=== PATIENT | female | born 1990 | race Two or more races ===

== ENCOUNTER 2021-08-25 14:58 | Emergency (ER) | payer OTHER ==
[2021-08-25 15:04] VITALS: TEMP 98.4
[2021-08-25] MEDS ORDERED: SODIUM CHLORIDE 0.9% 1,000 ML IV STA (15:39)
[2021-08-25] MEDS ORDERED: DEXAMETHASONE SOD PHOSPHATE 10 MG/ML 1 ML VIAL IVP STA (15:41)
--- NOTE | 2021-08-25 15:51 | ED ---
Chest Pain HPI - General Chief Complaint: Chest Pain Stated Complaint: Chest Pain Time Seen by Provider: 08/25/21 15:26 Source: patient, family, RN notes reviewed Mode of arrival: ambulatory Limitations: no limitations - History of Present Illness Initial Comments: This is a 31-year-old female who presents to the emergency department for chest pain. Patient states this started 3 days ago. It is localized to the center of her chest and is worse when breathing. She has also been coughing and dealing with an allergy flare up, but is unsure if these are related. Her eyes have been red, watery, and itchy. States that her symptoms have never been this severe. She did have a temperature of 103F yesterday. She has been taking Zyrtec, Benadryl, and using multiple eyedrops all with no relief. Describes the chest pain as being punched in the chest. She does note some intermittent shortness of breath as well. Denies any chills, sore throat, palpitations, abdominal pain, nausea, vomiting, diarrhea, back pain, or headaches. MD Complaint: chest pain Onset/Timin -: days(s) - Related Data Home Medications Medication Instructions Recorded Confirmed No Known Home Medications 08/25/21 08/25/21 Allergies Allergy/AdvReac Type Severity Reaction Status Date / Time No Known Allergies Allergy Verified 08/25/21 16:12 Review of Systems ROS Statement: Those systems with pertinent positive or pertinent negative responses have been documented in the HPI. ROS Other: All systems not noted in ROS Statement are negative. EKG Findings - EKG Comments: EKG Findings:: Normal sinus rhythm. Ventricular rate 72 bpm, OR interval 151 ms, QRS duration 95 ms, QTC 400 ms. Past Medical History Past Medical History: No Reported History History of Any Multi-Drug Resistant Organisms: None Reported Past Surgical History: Cholecystectomy Past Psychological History: No Psychological Hx Reported Smoking Status: Never smoker Past Alcohol Use History: None Reported Past Drug Use History: None Reported General Exam Limitations: no limitations General appearance: alert, in no apparent distress Head exam: Present: atraumatic, normocephalic, normal inspection Eye exam: Present: conjunctival injection (Bilateral), other (Bilateral epiphora) Respiratory exam: Present: normal lung sounds bilaterally. Absent: respiratory distress, wheezes, rales, rhonchi, stridor, chest wall tenderness Cardiovascular Exam: Present: regular rate, normal rhythm, normal heart sounds. Absent: systolic murmur, diastolic murmur, rubs, gallop, clicks Neurological exam: Present: alert, oriented X3, CN II-XII intact Psychiatric exam: Present: normal affect, normal mood Skin exam: Present: warm, dry, intact, normal color. Absent: rash Course Vital Signs 08/25/21 08/25/21 08/25/21 15:00 16:38 17:14 Temperature 98.4 F Pulse Rate 79 70 72 Respiratory 16 18 18 Rate Blood Pressure 116/84 121/74 111/62 O2 Sat by Pulse 96 97 98 Oximetry Chest Pain MDM - MDM This is a 31-year-old female who presents to the emergency department for chest pain. EKG revealed no arrhythmias or ST segment changes. Lab work obtained and was found to be nonactionable. Chest x-ray revealed no acute cardiopulmonary process. Patient given Decadron for possible allergic component given the associated eye itching and coughing. States that this may have improved her symptoms to a very minor extent. She was then given 2 mg of morphine, which she states helped her symptoms more, however the chest pain was still present. When asked about which symptom was most bothersome, she said it was her eyes. She was given Zaditor eyedrops, however these did not offer any relief. I discussed with the patient that he would be in her best interest to stay overnight for observation to trend her troponin levels in the event there is an ACS component to this. Patient declines to be admitted overnight, but states that she will stay for a repeat of the second troponin level. 325 mg aspirin administered. Second troponin level was negative. Upon reevaluation, the patient states that her symptoms had significantly improved at this point. Unclear if this was related to the ASA or Morphine and Decadron. Also states that her eyes were no longer painful and itchy, and feels like her face is less swollen, which suggests that the Decadron had taken affect. Patient requests discharge home. We again discussed that it would be advised to keep her overnight to track her troponin levels, at least 3 times in a row. However, patient declined despite my recommendations and accepts the risk of myocardial injury. Prescription for Bepotastine eyedrops sent to the pharmacy. Advised to use this twice daily for symptoms of allergies. She was given Toradol eye drops in the emergency department and sent home with a bottle. Advised that she can use this up to 4 times daily, however she should not use this longer than a week. If she finds these to be beneficial, she can discuss further use with her primary care provider. Return precautions reviewed in depth, the patient is instructed to return to the emergency department with any new, worsening, or concerning symptoms. Patient verbalized understanding. This case was discussed in detail with the attending ED physician. Presentation, findings, and treatment plan discussed in detail as well. - GIBSON Score Age > 65: (0) No 3 or more CAD Risk Factors: (0) No Known CAD with more than 50% Stenosis: (0) No Aspirin use within the Past 7 Days: (0) No Elevated Cardiac Markers: (0) No ST Deviation Greater than 0.5mm: (0) No Disposition Clinical Impression: Chest pain, Allergic conjunctivitis Disposition: HOME SELF-CARE Instructions (If sedation given, give patient instructions): Chest Pain (ED), Noncardiac Chest Pain (ED), Allergies (ED), Conjunctivitis (ED) Additional Instructions: Return to the emergency department with any new, worsening, or concerning symptoms. The ketorolac eyedrops were sent home with you and you can use them up to 4 times daily for no more than a week, if you wish to continue using these, consult your primary care provider. Use the Bepotastine eyedrops twice daily for treatment of allergies. Discuss the ongoing and severe allergy symptoms with your primary care provider for additional management options. Follow up with your primary care provider in 1-2 days. Is patient prescribed a controlled substance at d/c from ED?: No Referrals: None,Stated [Primary Care Provider] - 1-2 days
[2021-08-25 16:23] LABS: Basophils % (A) 0 %; Eosinophils # (A) 0.1 k/uL (0-0.7); Eosinophils % (A) 1 %; HCT 43.8 % (34.0-46.0); HGB 14.7 gm/dL (11.4-16.0); Lymphocytes # (A) 2.8 k/uL (1.0-4.8); Lymphocytes % (A) 31 %; MCH 27.8 pg (25.0-35.0); MCHC 33.6 g/dL (31.0-37.0); MCV 82.8 fL (80.0-100.0); Mean Platelet Volume 10.4; Monocytes # (A) 0.5 k/uL (0-1.0); Monocytes % (A) 6 %; Neutrophils # (A) 5.4 k/uL (1.3-7.7); Neutrophils % (A) 60 %; Platelet Count 246 k/uL (150-450); RBC 5.28 m/uL (3.80-5.40); RDW 13.8 % (11.5-15.5)
--- NOTE | 2021-08-25 16:26 | XR ---
EXAMINATION TYPE: XR chest 2V DATE OF EXAM: 08/25/2021 COMPARISON: NONE HISTORY: Chest pain TECHNIQUE: 2 views FINDINGS: Heart and mediastinum are normal. Lungs are clear. Diaphragm is normal. Bony thorax is inta ct there are chest leads. IMPRESSION: Normal chest.
[2021-08-25 16:38] VITALS: RESP 18
[2021-08-25 16:46] LABS: Appearance,Urine Cloudy (Clear); Bacteria,Urine Rare /hpf; Bilirubin,Urine Negative (Negative); Blood,Urine Small (Negative); Color,Urine Yellow; Glucose,Urine (UA) Negative (Negative); Ketones,Urine Negative (Negative); Leukocyte Esterase,Urine Moderate (Negative); Mucus,Urine Many /hpf; Nitrite,Urine Negative (Negative); Protein,Urine Trace (Negative); RBC,Urine 5 /hpf (0-5); Specific Gravity,Urine 1.031 (1.001-1.035); Squamous Epithelial Cell,Urine 6 /hpf (0-4); Urobilinogen,Urine <2.0 mg/dL (<2.0); WBC,Urine 3 /hpf (0-5)
[2021-08-25 16:49] LABS: ALT 29 U/L (4-34); AST 26 U/L (14-36); African American GFR (CKD) >90 (>60 ml/min/1.73 sqM); Albumin 3.8 g/dL (3.5-5.0); Alkaline Phosphatase 95 U/L (38-126); Amylase 57 U/L (30-110); Anion Gap 5 mmol/L; Blood Urea Nitrogen 12 mg/dL (7-17); Calcium 8.3 mg/dL (8.4-10.2); Carbon Dioxide 23 mmol/L (22-30); Chloride 110 mmol/L (98-107); Glucose 112 mg/dL (74-99); Lipase 59 U/L (23-300); Non-African American GFR(CKD) >90 (>60 ml/min/1.73 sqM); Potassium 3.5 mmol/L (3.5-5.1); Sodium 138 mmol/L (137-145); Total Bilirubin 0.7 mg/dL (0.2-1.3); Total Protein 7.1 g/dL (6.3-8.2)
[2021-08-25] MEDS ORDERED: KETOTIFEN 0.025% OPHTH DROPS 5 ML BTL BOTH EYES STA (17:02)
[2021-08-25] MEDS ORDERED: MORPHINE SULFATE 2 MG/ML SYRINGE IVP STA (17:04)
[2021-08-25] MEDS ORDERED: ASPIRIN 325 MG TAB PO STA (17:47)
[2021-08-25] MEDS ORDERED: KETOROLAC 0.5% OPHTH DROPS 5 ML BTL BOTH EYES SCH (18:15)
[2021-08-25 19:11] VITALS: BP 119/63; PULSE 74
[2021-08-25] MEDS ORDERED: KETOTIFEN 0.025% OPHTH DROPS 5 ML BTL BOTH EYES SCH (21:00)
== END 2021-08-25 19:28 | disposition home or self-care (01) ==
LOC: EC 14:58
DX: R07.89 Other chest pain (principal); H10.10 Acute atopic conjunctivitis, unspecified eye
CPT/HCPCS: 36415; 93005; 85379; 80053; 82150; 83690; 83735; 84484; 85025; 81001; 87502; 87635; 71046; 99285; 96374; 96375; 96361; J1100; J2270

== ENCOUNTER 2021-09-20 14:32 | Emergency (ER) | payer OTHER ==
[2021-09-20 15:21] VITALS: BP 112/81; PULSE 67; RESP 20; TEMP 97.8
--- NOTE | 2021-09-20 18:14 | ED ---
General Adult HPI - General Chief complaint: Upper Respiratory Infection Stated complaint: Cough,Eye issues Time Seen by Provider: 09/20/21 18:04 Source: patient Mode of arrival: ambulatory Limitations: no limitations - History of Present Illness Initial comments: Dictation was produced using [employer] dictation software. please excuse any grammatical, word or spelling errors. Chief Complaint: 31-year-old female presents to the emergency department for fever cough and sore throat History of Present Illness: 31-year-old female presents with her son and significant other. Patient's been sick for the last couple days. Patient states her symptoms include fever, cough and sore throat. Patient's children and are also sick with similar symptoms. Patient has had a cough this been productive of sputum. She has been having sore throat. She's been checked a temperature at home that has been as high as 102.. Patient has any shortness of breath or chest pain. Patient also complaining of conjunctivitis and rhinorrhea The ROS documented in this emergency department record has been reviewed and confirmed by me. Those systems with pertinent positive or negative responses have been documented in the HPI. All other systems are other negative and/or noncontributory. PHYSICAL EXAM: General Impression: Alert and oriented x3, not in acute distress HEENT: Normocephalic atraumatic, extra-ocular movements intact, pupils equal and reactive to light bilaterally, mucous membranes moist, nonerythematous oropharynx Cardiovascular: Heart regular rate and rhythm Chest: Able to complete full sentences, no retractions, no tachypnea, also to auscultation bilaterally Abdomen: abdomen soft, non-tender, non-distended, no organomegaly Musculoskeletal: Pulses present and equal in all extremities, no peripheral edema Motor: no focal deficits noted Neurological: CN II-XII grossly intact, no focal motor or sensory deficits noted Skin: Intact with no visualized rashes Psych: Normal affect and mood ED course: 31 y Old female with symptoms suggesting upper respiratory infection. He was initially seen in triage and had influenza and COVID-19 tests ordered and swallowed. Results are negative for COVID-19 and influenza. Vital signs upon arrival shows findings within acceptable limits. Patient not showing signs of respiratory distress. Chest x-ray ordered showing no acute processes. Patient's well-appearing at bedside. Patient given prescription for antibiotics to take any watch and see pattern. She is told to take the antibiotics in 3-4 days for symptoms are not improving or getting worse. Clinical presentation consistent with viral URI. - Related Data Previous Rx's Medication Instructions Recorded Bepotastine Besilate 1 drop BOTH EYES BID #10 ml 08/25/21 Azithromycin [Zithromax Z Pack] 1 tab PO DIRECTED #6 tab 09/20/21 Allergies Allergy/AdvReac Type Severity Reaction Status Date / Time No Known Allergies Allergy Verified 09/20/21 15:20 Review of Systems ROS Statement: Those systems with pertinent positive or pertinent negative responses have been documented in the HPI. ROS Other: All systems not noted in ROS Statement are negative. Past Medical History Past Medical History: No Reported History History of Any Multi-Drug Resistant Organisms: None Reported Past Surgical History: Cholecystectomy Past Psychological History: No Psychological Hx Reported Smoking Status: Never smoker Past Alcohol Use History: None Reported Past Drug Use History: None Reported General Exam Limitations: no limitations Course Vital Signs 09/20/21 15:15 Temperature 97.8 F Pulse Rate 67 Respiratory 20 Rate Blood Pressure 112/81 O2 Sat by Pulse 98 Oximetry Medical Decision Making - Lab Data Lab Results 09/20/21 09/20/21 Range/Units 15:21 15:21 Coronavirus (PCR) Not Detected (Not Detectd) Influenza Type A RNA Not Detected (Not Detectd) Influenza Type B (PCR) Not Detected (Not Detectd) Disposition Clinical Impression: Common cold Disposition: HOME SELF-CARE Condition: Good Instructions (If sedation given, give patient instructions): Upper Respiratory Infection (ED) Prescriptions: Azithromycin [Zithromax Z Pack] 1 tab PO DIRECTED #6 tab Is patient prescribed a controlled substance at d/c from ED?: No Referrals: None,Stated [Primary Care Provider] - 1-2 days Time of Disposition: 19:19
--- NOTE | 2021-09-20 18:38 | XR ---
EXAMINATION TYPE: XR chest 2V DATE OF EXAM: 09/20/2021 6:19 PM COMPARISON: Chest radiographs from 08/25/2021 TECHNIQUE: XR chest 2V Frontal and lateral views of the chest. CLINICAL INDICATION:Female, 31 years old with history of cough, fever; FINDINGS: Lungs/Pleura: There is no evidence of pleural effusion, focal consolidation, or pneumothorax. Pulmonary vascularity: Unremarkable. Heart/mediastinum: Cardiomediastinal silhouette is unremarkable. Musculoskeletal: No acute osseous pathology. IMPRESSION: No acute cardiopulmonary disease/process or significant change from prior.
== END 2021-09-20 19:28 | disposition home or self-care (01) ==
LOC: EC 14:32
DX: J00 Acute nasopharyngitis [common cold] (principal); Z20.822 Contact with and (suspected) exposure to COVID-19
CPT/HCPCS: 71046; 87502; 87635; 99283